=== PATIENT | female | born 2000 | race Two or more races ===

== ENCOUNTER 2021-07-11 11:50 | Emergency (ER) | payer MEDICAID ==
[~2021-07-11] VITALS: Ht 167.6 cm; Wt 61.2 kg
[2021-07-11 12:16] VITALS: BP 110/60
[2021-07-11] MEDS ORDERED: AMOX-430 PO (12:28)
[2021-07-11] MEDS ORDERED: TDAP [DIPH/PERTUSSIS/TET] 0.5 ML VIAL IM ONE ×2 (12:30→12:36)
--- NOTE | 2021-07-11 12:44 | NUR ---
Patient discharged to home in stable condition. Written and verbal after care instructions given. Patient verbalizes understanding of instruction.
== END 2021-07-11 12:44 | disposition home or self-care (01) ==
LOC: ER 11:56
DX: S01.511A Laceration without foreign body of lip, initial encounter (principal); W54.0XXA Bitten by dog, initial encounter; Y93.89 Activity, other specified; Y92.89 Other specified places as the place of occurrence of the external cause; Y99.8 Other external cause status
CPT/HCPCS: 90715